=== PATIENT | female | born 2000 | race Caucasian/White ===

== ENCOUNTER 2023-09-13 07:34 | Inpatient (IN) ==
--- NOTE | 2023-09-13 08:25 | History & Physical Report ---
"Date of Service September 13, 2023 Assessment & Plan (1) Encounter for induction of labor: Plan 23 y/o here for induction Epidural when requested AROM when indicated Pitocin augmentation as needed for adequate contraction Monitor tracing, category 1 Admission and Anticipated Discharge Date Admission Date: September 13, 2023 History of Present Illness Primary Care Provider: NO PCP Odilia is a 23 y/o at 39 weeks of gestation THOMAS: 09/19/2023 . Here for Induction had a vincent bulb.Complications with this include LGA (anatomy US EFW>98%). Had covid positive 08/03/23 and Influenza positive (09/06/23). Has been attending OB appointments regularly. Currently taking vitamins and ASA. GBS negative, Rubella Immune, BTG: A+ Contractions: none. Fluid or Blood loss: none Movement: active FHR baseline 130, moderate variability, accelerations present, decelerations absent Lab Results OB Labs: Blood Type A Positive 02/18/23 Antibody Screen NEGATIVE 02/18/23 Hemoglobin 11.3 g/dl (12.0-16.0) L 08/12/23 Hematocrit 34.0 % (37.0-47.0) L 08/12/23 Mean Corpuscular Volume 99.4 fL (80.0-100.0) 08/12/23 Platelet Count 189 K/uL (130-400) 08/12/23 Rubella IgG Antibody Immune (Immune) 02/18/23 Rapid Plasma Reagin Nonreactive (Nonreactive) 02/18/23 Hepatitis B Surface Antigen. NON-REACTIVE (NON-REACTIVE) 02/18/23 Hepatitis C Antibody (EIA) NON-REACTIVE (NON-REACTIVE) 02/18/23 HIV (1&2) Ag and Ab Confirmation NON-REACTIVE (NON-REACTIVE) 02/18/23 Glucose 1 Hour 50 gm Load 94 mg/dl (70-130) 07/04/23 OB Optional Labs: Chlamydia trachomatis RNA Not Detected (NotDetected) 02/18/23 Neisseria gonorrhoeae RNA Not Detected (NotDetected) 02/18/23 Labs Reviewed: cfdna-low risk--mln Allergies Allergy/AdvReac Type Severity Reaction Status Date / Time No Known Allergies Allergy Verified 09/12/23 19:55 Home Medications Medication Instructions Recorded Confirmed Type aspirin 81 mg tablet,delayed 81 mg PO DAILY 04/06/23 09/13/23 History release (Adult Low Dose Aspirin) digital therapeutic,SEKOU device #1 ea 05/05/23 09/12/23 Rx magnesium glycinate 400 mg (4 x 100 mg magnesium) PO 05/05/23 09/13/23 Rx DAILY #30 caps breast pump #1 ea 08/09/23 09/12/23 Rx ferrous sulfate 325 mg (65 mg 325 mg PO DAILY 08/12/23 09/13/23 History iron) tablet pantoprazole 20 mg tablet,delayed 20 mg PO DAILY #30 tabs 08/24/23 09/13/23 Rx release amoxicillin 500 mg capsule 500 mg PO TID 08/31/23 09/13/23 History vits no.124-ferrous fum 1 tab PO DAILY 09/12/23 09/13/23 History 27 mg iron-folic acid 800 mcg tablet ( Vitamin) Patient History Medical History (Updated 09/13/23 @ 08:22 by Indy Mullen MD) COVID-19 affecting in third trimester Kidney stone Varicella vaccination Surgical History (Updated 09/12/23 @ 19:54 by Sheree Lehman RN) [place] teeth removed S/P myringotomy with insertion of tube S/P ear surgery 4-5 surgeries for ear drum perforation History of lithotripsy Family History Grandmother (Maternal) Breast cancer Mother Gestational diabetes Diabetes HELLP syndrome delivery Grandmother (Paternal) Heart disease Grandfather (Maternal) Heart disease Denies family history of Ovarian cancer Colorectal cancer Social History Smoking Status: Never smoker Second Hand Exposure: No; Do You Dip or Chew Tobacco: No; Hx Alcohol Use: No Hx Substance Use: No Preferred Language: Indonesian Communication Ability: Effective Stitch Burnisher Required: No Beliefs That Will Affect Care: None marital status: marital status details: Erick Han (24) [phone] Current Living Situation: Spouse Current Living Situation Comment: lives with spouse, no pets current occupational status: employed 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 Skin: warm, dry, intact Heart: +S1/S2, regular, no m/r/g Lungs: equal air entry bilaterally, no rales/rhonchi/wheezes Abd: +BS, soft, NT/ND, gravid uterus Cervical:1.0|50|-2, uterus mod. anterior Ext: warm, no clubbing/cyanosis or edema Results & Data Vital Signs (Past 12 Hours) Vital Signs Temp Pulse Resp BP 09/13/23 07:52 99 H 135/71 09/13/23 07:46 36.7 C 18 Supervising Physician Co-Signing Physician Notes Resident Physician Supervision Note: I was present with Dr. Royce Mullen during the history and exam. I discussed the case with the resident and agree with the findings and plan as documented in the note. Any exceptions or clarifications are listed here: 23yo @ 39 08/07, IOL for suspected LGA, vincent bulb last night fell out at midnight. SVE 5/80/- 2, FHT Cat 1, irreg ctx. Will start pitocin, ok for epidural when she desires. Documented By: Olivia Mortensen, Resident Activity Tracking Resident Involvement: Resident Care Provided Care Provided: OB Delivery"
[2023-09-13] MEDS ORDERED: OXYTOCIN 30 UNITS/NSS 30 UNITS/500 ML BAG IV PRN (08:39)
[2023-09-13] MEDS ORDERED: LIDOCAINE 1% LOCAL 20 ML VIAL INFIL PRN (08:39)
[2023-09-13 09:07] LABS: Hematocrit (blood only) 35.2 % (37.0-47.0); Hemoglobin 11.5 g/dl (12.0-16.0); Mean Corpuscular Hemoglobin 32.5 pg (25.0-34.0); Mean Corpuscular Hgb Conc 32.7 g/dL (32.0-36.0); Mean Corpuscular Volume 99.4 fL (80.0-100.0); Mean Platelet Volume 10.1 fL (9.4-12.4); Platelet Count 198 K/uL (130-400); RDW Coefficient of Variation 14.2 % (11.5-14.5); RDW Standard Deviation 51.6 fL (36.4-46.3); Red Blood Count 3.54 M/uL (4.20-5.40); White Blood Count 13.54 K/ul (4.8-10.8)
[2023-09-13] MEDS: OXYTOCIN 30 UNITS/NSS 30 UNITS/500 ML BAG IV PRN (09:08)
[2023-09-13] MEDS: LACTATED RINGER'S 1,000 ML IV PRN (09:08)
[2023-09-13] MEDS ORDERED: AMOXICILLIN 500 MG CAP PO SCH (13:00)
[2023-09-13] MEDS: AMOXICILLIN 500 MG CAP PO SCH (14:12)
--- NOTE | 2023-09-13 14:25 | Anesthesiology Consultation ---
Date of Service September 13, 2023 Assessment & Plan Chart Review Chart Review: Patient NOT seen in Pre Admission Testing and Acceptable Risk for Labor Epidural Consults Requested none ASA ASA2 Proposed Anesthesia Anesthesia Type: Labor Epidural Risk / Benefits Reviewed With: PT / POA / Parent / Guardian, Accepts Plan and Informed Consent Obtained History Height/Weight Height: 5 ft 2 in Weight: 85.729 kg Allergies Allergy/AdvReac Type Severity Reaction Status Date / Time No Known Allergies Allergy Verified 09/12/23 19:55 Medications Home Medications Medication Instructions Recorded Confirmed Last Taken aspirin 81 mg tablet,delayed 81 mg PO DAILY 04/06/23 09/13/23 09/11/23 release (Adult Low Dose Aspirin) digital therapeutic,SEKOU device #1 ea 05/05/23 09/12/23 Unknown magnesium glycinate 400 mg (4 x 100 mg magnesium) PO 05/05/23 09/13/23 09/11/23 06:00 DAILY #30 caps breast pump #1 ea 08/09/23 09/12/23 Unknown ferrous sulfate 325 mg (65 mg 325 mg PO DAILY 08/12/23 09/13/23 09/11/23 06:00 iron) tablet pantoprazole 20 mg tablet,delayed 20 mg PO DAILY #30 tabs 08/24/23 09/13/23 09/11/23 06:00 release amoxicillin 500 mg capsule 500 mg PO TID 08/31/23 09/13/23 09/13/23 06:00 vits no.124-ferrous fum 1 tab PO DAILY 09/12/23 09/13/23 09/13/23 06:00 27 mg iron-folic acid 800 mcg tablet ( Vitamin) Active Medications Generic Name Dose Route Start Last Admin Trade Name Freq PRN Reason Stop Dose Admin Amoxicillin 500 mg 09/13/23 14:00 09/13/23 14:12 Amoxicillin 500 Mg Cap PO 09/15/23 13:59 500 mg TID DARLYN Administration Protocol Lactated Ringer's 1,000 mls @ 125 mls/hr 09/13/23 08:39 09/13/23 14:12 Lr IV 09/15/23 08:38 125 mls/hr .Q8H PRN Administration L&D Protocol Protocol Oxytocin 30 units in 500 mls @ 15 mls/hr 09/13/23 08:50 09/13/23 12:45 Pitocin 30 Units/Nss IV 09/15/23 08:49 0.9 units/hr .Q24H PRN 15 mls/hr Labor Induction/Augmentation Titration Protocol 0.9 UNITS/HR NPO Date Last Intake of Fluids: 09/13/23 Time Last Intake of Fluids: 14:00 Date Last Intake of Solids: 09/13/23 Time Last Intake of Solids: 14:00 Past Medical History Medical History COVID-19 affecting in third trimester Kidney stone Varicella vaccination Exercise / Class Metabolic Activity 1 > 8 Run/Swim/Ski/Tennis Past Family History Family History Grandmother (Maternal) Breast cancer Mother Gestational diabetes Diabetes HELLP syndrome delivery Grandmother (Paternal) Heart disease Grandfather (Maternal) Heart disease Denies family history of Ovarian cancer Colorectal cancer Past Surgical History Surgical History [place] teeth removed S/P myringotomy with insertion of tube S/P ear surgery 4-5 surgeries for ear drum perforation History of lithotripsy Past Anesthesia History No Hx of Anesthesia Complications and No Family Hx of Anesthesia Complications History of PONV No Hx of PONV and No Hx of Motion Sickness Social History Smoking Status: Never smoker Do You Dip or Chew Tobacco: No Hx Alcohol Use: No Hx Substance Use: No substance use type: does not use Review of Systems ROS Unobtainable: All systems reviewed & are unremarkable except as noted in HPI & below Physical Exam Vital Signs Last Vital Signs Temp 36.7 C 09/13/23 07:46 Pulse 90 09/13/23 13:44 Resp 18 09/13/23 07:46 BP 124/73 09/13/23 13:44 ENMT Mouth: no TMJ abnormality Thyromental Distance: > or= 3.5 Finger Breadths Mallampati Class: II Neck normal visual inspection and trachea midline; neck extension not limited Respiratory normal respiratory effort Auscultation: lungs clear to auscultation bilaterally Cardiovascular Rate/Rhythm: regular rate and regular rhythm Heart Sounds: no murmur Musculoskeletal Spine: normal cervical ROM Extremities: full ROM of extremities Neurologic moves all extremities Psychiatric Orientation: alert and oriented x 3 Testing Laboratory Results 09/13/23 08:39
[2023-09-13] MEDS ORDERED: LIDOCAINE 2% MPF LOCAL 5 ML VIAL EPI PRN (14:26)
[2023-09-13] MEDS ORDERED: ROPIVACAINE 0.5% PF 5 MG/ML 20 ML VIAL EPI PRN (14:26)
[2023-09-13] MEDS ORDERED: BUPIVACAINE 0.25% PF 30 ML VIAL EPI PRN (14:26)
[2023-09-13] MEDS ORDERED: diphenhydrAMINE 50 MG/ML VIAL IV PRN (14:26)
[2023-09-13] MEDS ORDERED: ePHEDrine sulfate 50 MG/ML AMP IV PRN (14:26)
[2023-09-13] MEDS ORDERED: NALOXONE HCL 1 MG in SODIUM CHLORIDE 0.9% 1,000 ML IV PRN (14:26)
[2023-09-13] MEDS ORDERED: NALOXONE HCL 0.4 MG/1 ML VIAL/CARP IV PRN (14:26)
[2023-09-13] MEDS ORDERED: NALBUPHINE HCL 5 MG in SYRINGE 0 ML IV PRN (14:26)
[2023-09-13] MEDS ORDERED: fentaNYL citrate PF 100 MCG/2 ML VIAL EPI PRN (14:26)
[2023-09-13] MEDS ORDERED: SODIUM CHLORIDE 0.9% PF INJ 10 ML VIAL EPI PRN (14:26)
[2023-09-13] MEDS: LIDOCAINE 2%/EPINEPHRINE 1:200,000 20 ML PF EPI STA (14:38)
[2023-09-13] MEDS: BUPIVACAINE 0.25% PF 30 ML VIAL EPI STA (14:38)
[2023-09-13] MEDS: fentANYL 2 MCG/ML BUPIVacaine 0.125%-NSS 100ML BAG ONE (14:40)
[2023-09-13] MEDS: fentaNYL citrate PF 100 MCG/2 ML VIAL ONE (17:55)
[2023-09-13] MEDS: SODIUM CHLORIDE 0.9% PF INJ 10 ML VIAL ONE (17:56)
[2023-09-13] MEDS: BUPIVACAINE 0.25% PF 30 ML VIAL ONE (17:56)
[2023-09-13] MEDS: SODIUM CHLORIDE 0.9% PF INJ 10 ML VIAL EPI STA (17:56)
[2023-09-13] MEDS: fentaNYL citrate PF 100 MCG/2 ML VIAL EPI STA (17:56)
[2023-09-13] MEDS: LIDOCAINE 2%/EPINEPHRINE 1:200,000 20 ML PF ONE (17:56)
--- NOTE | 2023-09-13 20:09 | Labor Progress Brief Note ---
Date of Service September 13, 2023 Subjective Comfortable with epidural. FHT Cat 1 [place] Q 2 SVE: /-1 IUPC placed. Assessment & Plan Admission and Anticipated Discharge Date Admission Date: September 13, 2023 Results & Data Vital Signs (Past 12 Hours) Vital Signs Temp Pulse Resp BP Pulse Ox O2 Del Method 09/13/23 20:03 69 100 09/13/23 20:01 83 110/71 09/13/23 19:58 81 100 09/13/23 19:53 93 H 99 09/13/23 19:49 81 91 09/13/23 19:48 86 99 09/13/23 19:47 73 99/55 L 09/13/23 19:43 73 100 09/13/23 19:38 97 09/13/23 19:38 73 09/13/23 19:38 75 92 09/13/23 19:33 76 100 09/13/23 19:31 77 103/55 L 09/13/23 19:28 77 100 09/13/23 19:23 74 99 09/13/23 19:18 73 100 09/13/23 19:17 74 105/53 L 09/13/23 19:13 79 100 09/13/23 19:08 82 100 09/13/23 19:03 95 H 100 09/13/23 19:01 36.8 C 82 18 98/57 L 09/13/23 19:00 Room Air 09/13/23 19:00 16 09/13/23 19:00 16 09/13/23 18:58 77 100 09/13/23 18:55 73 93 09/13/23 18:53 80 100 09/13/23 18:48 81 100 09/13/23 18:47 87 100/56 L 09/13/23 18:43 82 94 09/13/23 18:38 85 100 09/13/23 18:35 79 91 09/13/23 18:33 80 100 09/13/23 18:31 71 102/57 L 09/13/23 18:30 20 09/13/23 18:30 20 09/13/23 18:28 74 100 09/13/23 18:23 75 100 09/13/23 18:19 75 93 09/13/23 18:18 97 09/13/23 18:18 73 09/13/23 18:18 69 101/57 L 09/13/23 18:13 73 100 09/13/23 18:08 69 100 09/13/23 18:03 79 100 09/13/23 18:02 70 105/55 L 09/13/23 18:00 20 09/13/23 18:00 20 09/13/23 17:58 73 100 09/13/23 17:53 73 100 09/13/23 17:49 81 88 L 09/13/23 17:48 82 97 09/13/23 17:46 71 121/64 09/13/23 17:43 64 100 09/13/23 17:38 63 100 09/13/23 17:33 65 100 09/13/23 17:32 68 100/67 09/13/23 17:30 18 09/13/23 17:30 18 09/13/23 17:28 66 100 09/13/23 17:23 65 100 09/13/23 17:18 63 100 09/13/23 17:17 64 108/67 09/13/23 17:13 72 100 09/13/23 17:10 71 92 09/13/23 17:08 74 100 09/13/23 17:04 81 93 09/13/23 17:03 91 H 100 09/13/23 17:02 82 104/64 09/13/23 17:00 20 09/13/23 17:00 36.9 C 20 09/13/23 16:58 80 98 09/13/23 16:53 75 98 09/13/23 16:48 75 100 09/13/23 16:46 75 101/56 L 09/13/23 16:43 75 100 09/13/23 16:40 70 92 09/13/23 16:38 77 100 09/13/23 16:33 76 100 09/13/23 16:31 69 99/57 L 09/13/23 16:30 18 09/13/23 16:30 18 09/13/23 16:28 79 100 09/13/23 16:23 71 100 09/13/23 16:19 78 88 L 09/13/23 16:18 77 100 09/13/23 16:17 72 98/51 L 09/13/23 16:13 73 100 09/13/23 16:09 77 92 09/13/23 16:08 75 100 09/13/23 16:03 80 100 09/13/23 16:00 20 09/13/23 16:00 36.4 C L 20 09/13/23 15:58 75 100 09/13/23 15:53 76 100 09/13/23 15:48 69 104/59 L 100 09/13/23 15:43 71 100 09/13/23 15:38 69 100 09/13/23 15:33 75 100 09/13/23 15:31 78 117/70 09/13/23 15:30 18 09/13/23 15:30 18 09/13/23 15:28 69 100 09/13/23 15:25 71 111/58 L 09/13/23 15:23 64 98 09/13/23 15:21 67 112/58 L 09/13/23 15:18 65 98 09/13/23 15:16 65 110/58 L 09/13/23 15:13 67 98 09/13/23 15:11 63 112/61 09/13/23 15:08 69 99 09/13/23 15:06 71 112/60 09/13/23 15:03 65 100 09/13/23 15:00 74 18 117/63 09/13/23 14:58 74 100 09/13/23 14:56 72 119/61 09/13/23 14:53 84 99 09/13/23 14:49 74 109/62 09/13/23 14:48 76 96 09/13/23 14:47 73 108/62 09/13/23 14:45 78 112/64 09/13/23 14:43 78 109/65 98 09/13/23 14:41 78 118/56 L 09/13/23 14:40 20 09/13/23 14:40 20 09/13/23 14:39 73 112/60 09/13/23 14:38 80 100 09/13/23 14:37 93 H 121/75 09/13/23 14:36 20 09/13/23 14:36 20 09/13/23 14:35 78 20 118/75 09/13/23 14:33 80 100 09/13/23 14:31 18 09/13/23 14:31 18 09/13/23 14:28 79 100 09/13/23 14:26 20 09/13/23 14:26 20 09/13/23 14:23 85 111/72 100 09/13/23 13:44 90 124/73 09/13/23 12:49 76 107/64 09/13/23 11:45 96 H 125/74 09/13/23 10:49 73 112/52 L 09/13/23 09:59 76 118/59 L 09/13/23 09:11 81 129/61 Coding Level of Care Code None
[2023-09-13] MEDS: fentANYL 2 MCG/ML BUPIVacaine 0.125%-NSS 100ML BAG EPI PRN (23:32)
--- NOTE | 2023-09-13 23:48 | Labor Progress Brief Note ---
Date of Service September 13, 2023 Subjective Comfortable with epidural. FHT Cat 1 [place] Q 2, unable to achieve consistent adequate [place] units SVE 6/100/-1 Cervix remains essentially unchanged after 5h with pitocin at 20u. Minimal change throughout the past 14h of labor (she arrived with 5cm dilation). Discussed either continuing labor vs proceeding to section for failure to dilate. She and spouse would like to discuss - I answered questions, and then left the room to allow the opportunity to discuss amongst themselves. Assessment & Plan Admission and Anticipated Discharge Date Admission Date: September 13, 2023 Results & Data Vital Signs (Past 12 Hours) Vital Signs Temp Pulse Resp BP Pulse Ox O2 Del Method 09/13/23 23:43 92 H 99 09/13/23 23:40 36.7 C 09/13/23 23:38 78 100 09/13/23 23:33 90 100 09/13/23 23:32 86 118/69 09/13/23 23:28 81 100 09/13/23 23:25 96 H 86 L 09/13/23 23:23 81 100 09/13/23 23:18 86 99 09/13/23 23:16 89 116/69 09/13/23 23:13 83 99 09/13/23 23:08 84 100 09/13/23 23:03 84 98 09/13/23 23:02 90 112/65 09/13/23 23:00 16 09/13/23 23:00 16 09/13/23 22:58 87 100 09/13/23 22:53 89 100 09/13/23 22:48 83 99 09/13/23 22:46 86 115/63 09/13/23 22:43 78 99 09/13/23 22:38 79 100 09/13/23 22:33 77 99 09/13/23 22:31 80 121/65 09/13/23 22:30 18 09/13/23 22:30 18 09/13/23 22:28 73 98 09/13/23 22:23 87 99 09/13/23 22:18 86 99 09/13/23 22:17 81 119/64 09/13/23 22:13 85 97 09/13/23 22:08 70 100 09/13/23 22:03 80 100 09/13/23 22:02 71 122/64 09/13/23 22:00 18 09/13/23 22:00 18 09/13/23 21:58 65 100 09/13/23 21:53 72 100 09/13/23 21:48 69 100 09/13/23 21:46 66 116/58 L 09/13/23 21:43 69 100 09/13/23 21:38 68 99 09/13/23 21:33 69 100 09/13/23 21:31 73 113/60 09/13/23 21:30 18 09/13/23 21:30 18 09/13/23 21:28 74 100 09/13/23 21:23 70 100 09/13/23 21:18 71 99 09/13/23 21:16 77 111/59 L 09/13/23 21:13 76 98 09/13/23 21:08 85 97 09/13/23 21:07 83 92 09/13/23 21:05 18 09/13/23 21:05 37.0 C 18 09/13/23 21:03 79 96 09/13/23 21:01 71 102/53 L 09/13/23 21:00 16 09/13/23 21:00 16 09/13/23 21:00 16 09/13/23 21:00 16 09/13/23 20:58 74 96 09/13/23 20:53 74 96 09/13/23 20:48 73 96 09/13/23 20:47 72 107/59 L 09/13/23 20:43 73 98 09/13/23 20:38 73 97 09/13/23 20:33 71 98 09/13/23 20:31 71 108/60 09/13/23 20:30 18 09/13/23 20:30 18 09/13/23 20:28 74 97 09/13/23 20:23 72 100 09/13/23 20:18 69 100 09/13/23 20:17 70 121/72 09/13/23 20:13 71 100 09/13/23 20:08 67 93 09/13/23 20:03 69 100 09/13/23 20:01 83 110/71 09/13/23 20:00 18 09/13/23 20:00 18 09/13/23 19:58 81 100 09/13/23 19:53 93 H 99 09/13/23 19:50 18 09/13/23 19:50 18 09/13/23 19:49 81 91 09/13/23 19:48 86 99 09/13/23 19:47 73 99/55 L 09/13/23 19:43 73 100 09/13/23 19:38 97 09/13/23 19:38 73 09/13/23 19:38 75 92 09/13/23 19:33 76 100 09/13/23 19:31 77 103/55 L 09/13/23 19:28 77 100 09/13/23 19:23 74 99 09/13/23 19:18 73 100 09/13/23 19:17 74 105/53 L 09/13/23 19:13 79 100 09/13/23 19:08 82 100 09/13/23 19:03 95 H 100 09/13/23 19:01 36.8 C 82 18 98/57 L 09/13/23 19:00 Room Air 09/13/23 19:00 16 09/13/23 19:00 16 09/13/23 18:58 77 100 09/13/23 18:55 73 93 09/13/23 18:53 80 100 09/13/23 18:48 81 100 09/13/23 18:47 87 100/56 L 09/13/23 18:43 82 94 09/13/23 18:38 85 100 09/13/23 18:35 79 91 09/13/23 18:33 80 100 09/13/23 18:31 71 102/57 L 09/13/23 18:30 20 09/13/23 18:30 20 09/13/23 18:28 74 100 09/13/23 18:23 75 100 09/13/23 18:19 75 93 09/13/23 18:18 97 09/13/23 18:18 73 09/13/23 18:18 69 101/57 L 09/13/23 18:13 73 100 09/13/23 18:08 69 100 09/13/23 18:03 79 100 09/13/23 18:02 70 105/55 L 09/13/23 18:00 20 09/13/23 18:00 20 09/13/23 17:58 73 100 09/13/23 17:53 73 100 09/13/23 17:49 81 88 L 09/13/23 17:48 82 97 09/13/23 17:46 71 121/64 09/13/23 17:43 64 100 09/13/23 17:38 63 100 09/13/23 17:33 65 100 09/13/23 17:32 68 100/67 09/13/23 17:30 18 09/13/23 17:30 18 09/13/23 17:28 66 100 09/13/23 17:23 65 100 09/13/23 17:18 63 100 09/13/23 17:17 64 108/67 09/13/23 17:13 72 100 09/13/23 17:10 71 92 09/13/23 17:08 74 100 09/13/23 17:04 81 93 09/13/23 17:03 91 H 100 09/13/23 17:02 82 104/64 09/13/23 17:00 20 09/13/23 17:00 36.9 C 20 09/13/23 16:58 80 98 09/13/23 16:53 75 98 09/13/23 16:48 75 100 09/13/23 16:46 75 101/56 L 09/13/23 16:43 75 100 09/13/23 16:40 70 92 09/13/23 16:38 77 100 09/13/23 16:33 76 100 09/13/23 16:31 69 99/57 L 09/13/23 16:30 18 09/13/23 16:30 18 09/13/23 16:28 79 100 09/13/23 16:23 71 100 09/13/23 16:19 78 88 L 09/13/23 16:18 77 100 09/13/23 16:17 72 98/51 L 09/13/23 16:13 73 100 09/13/23 16:09 77 92 09/13/23 16:08 75 100 09/13/23 16:03 80 100 09/13/23 16:00 20 09/13/23 16:00 36.4 C L 20 09/13/23 15:58 75 100 09/13/23 15:53 76 100 09/13/23 15:48 69 104/59 L 100 09/13/23 15:43 71 100 09/13/23 15:38 69 100 02/13/24 15:33 75 100 09/13/23 15:31 78 117/70 09/13/23 15:30 18 09/13/23 15:30 18 09/13/23 15:28 69 100 09/13/23 15:25 71 111/58 L 09/13/23 15:23 64 98 09/13/23 15:21 67 112/58 L 09/13/23 15:18 65 98 09/13/23 15:16 65 110/58 L 09/13/23 15:13 67 98 09/13/23 15:11 63 112/61 09/13/23 15:08 69 99 09/13/23 15:06 71 112/60 09/13/23 15:03 65 100 09/13/23 15:00 74 18 117/63 09/13/23 14:58 74 100 09/13/23 14:56 72 119/61 09/13/23 14:53 84 99 09/13/23 14:49 74 109/62 09/13/23 14:48 76 96 09/13/23 14:47 73 108/62 09/13/23 14:45 78 112/64 09/13/23 14:43 78 109/65 98 09/13/23 14:41 78 118/56 L 09/13/23 14:40 20 09/13/23 14:40 20 09/13/23 14:39 73 112/60 09/13/23 14:38 80 100 09/13/23 14:37 93 H 121/75 09/13/23 14:36 20 09/13/23 14:36 20 09/13/23 14:35 78 20 118/75 09/13/23 14:33 80 100 09/13/23 14:31 18 09/13/23 14:31 18 09/13/23 14:28 79 100 09/13/23 14:26 20 09/13/23 14:26 20 09/13/23 14:23 85 111/72 100 09/13/23 13:44 90 124/73 09/13/23 12:49 76 107/64 Coding Level of Care Code None
--- NOTE | 2023-09-14 00:26 | History & Physical Bridge Note ---
Date of Service September 14, 2023 History & Physical Bridge Note I have examined the patient, reviewed the History & Physical and in the interval since the performance of the History & Physical I have noted the following changes of clinical significance: no changes noted. Patient had an opportunity to discuss with spouse, she decided to proceed with section. Reviewed consent in detail, discussed risks/benefits/alternatives. Questions answered. Will proceed to OR for primary section for failure to dilate in labor.
--- NOTE | 2023-09-14 00:50 | Communication Note ---
Date of Service: September 14, 2023 C section called for failure to progress. Will proceed with regional anesthetic using patient's epidural. ASA 2E.
[2023-09-14] MEDS: CITRIC ACID/SODIUM CITRATE 15 ML UDC PO STA (00:57)
[2023-09-14] MEDS: ceFAZolin 2000MG 2,000 MG/15 ML SYR IV STA (01:00)
[2023-09-14] MEDS ORDERED: NALOXONE HCL 0.4 MG/1 ML VIAL/CARP IV PRN (01:34)
[2023-09-14] MEDS ORDERED: LACTATED RINGER'S 500 ML IV PRN (01:34)
[2023-09-14] MEDS ORDERED: ePHEDrine sulfate 50 MG/ML AMP IV PRN (01:34)
[2023-09-14] MEDS ORDERED: diphenhydrAMINE 50 MG/ML VIAL IV PRN ×2 (01:34→19:34)
[2023-09-14] MEDS ORDERED: NALOXONE HCL 0.08 MG in SYRINGE 1.8 ML IV PRN (01:34)
[2023-09-14] MEDS ORDERED: NALOXONE HCL 1 MG in SODIUM CHLORIDE 0.9% 1,000 ML IV PRN (01:34)
[2023-09-14] MEDS ORDERED: NALBUPHINE HCL 5 MG in SYRINGE 0 ML IV PRN (01:34)
[2023-09-14] MEDS ORDERED: DC INTRASPINAL MORPHINE SCH (01:45)
[2023-09-14] MEDS ORDERED: NO NARCOTICS OR SEDATIVES SCH (01:45)
--- NOTE | 2023-09-14 02:10 | Operative Report ---
PG Post Operative Report Pre & Post Diagnosis Operation Date: 09/14/23 00:30 Pre-Op Diagnosis: Induction for suspected LGA Failure to Progress Post-Op Diagnosis: Induction for suspected LGA Failure to Progress I identified the patient and participated in the time-out.: Yes Procedure Operation Date: 09/14/23 00:30 Actual Procedures p Primary Low Transverse Section in LD. Live male child @0120 - Olivia Mortensen DO Surgeon Olivia Mortensen DO Medical Laboratory Technician Tammi Jovel RN Estimated Blood Loss 800 Findings Consistent with Post-Op Diagnosis Viable male , Apgars 8/9. Weight 8#4oz. Normal appearing uterus, tubes, ovaries. Specimens placenta, cord blood, cord gas Drains vincnet clear yellow 100ml Anesthesia Type L&D Only Epidural Exists Complications none Disposition Accompanied Patient To Recovery: Yes Disposition: L&D Indications 23yo @ 39 2/, IOL for suspected LGA, arrived to L&D after cervical ripening vincent bulb with cervical dilation 5cm, after pitocin for approx 15h cervical dilation with minimal change 6cm. Discussed failure to dilate with patient, she agreed to proceed for section. Description of Procedure The patient was seen in her labor and delivery room, risks benefits and alternatives to surgery were reviewed. Informed consent obtained. Questions were answered. She was taken to the operating room, epidural anesthesia was redosed. She received 2g Ancef and 500mg Azithromycin preoperatively. She was then prepared and draped in the usual sterile fashion in the supine position with a leftward tilt. Timeout was confirmed. A Pfannenstiel skin incision was made with a scalpel, and carried through to the underlying layer of fascia. Fascia was nicked at midline, and this incision was extended bilaterally. The superior aspect of the fascial incision was grasped with Dane clamps x2, elevated off the underlying rectus abdominis muscles, and dissected sharply and bluntly. In similar fashion, the inferior aspect of the fascial incision was dissected. The rectus abdominis muscles were , and the peritoneum was entered bluntly digitally. This was extended bilaterally. The bladder flap was taken down carefully using Metzenbaum scissors. Using a new scalpel, a low transverse uterine incision was created. Clear amniotic fluid noted. The was delivered from a cephalic presentation. The head delivered, followed by shoulders and body. Spontaneous cry on the field. The cord was doubly clamped and cut, and the was handed off to the waiting computer repair instructor. A segment was retained for cord gases. Cord blood was obtained. The placenta was delivered spontaneously intact. The uterus was exteriorized, and cleared of all clots and debris. The hysterotomy incision was reapproximated using 0 Vicryl in a running locked stitch. A second layer of the same suture was used to imbricate the incision. Posterior uterus was evaluated and normal. The uterus was returned to the abdomen, and gutters were cleared of clots and debris. Excellent hemostasis was observed. The fascial incision was reapproximated using 0 Vicryl in a running stitch. The subcutaneous tissue was irrigated, and reapproximated using 2-0 plain gut in a running stitch. The skin was reapproximated using 4-0 Vicryl in a running subcuticular stitch. Steri-Strips and a bandage were applied. The patient tolerated the procedure well, and will be taken to the recovery area in stable and good condition. Sponge, instrument, needle counts correct at end of case. I attest to the content of the Intraoperative Record and any orders documented therein. Any exceptions are noted below. OB Procedure Charges 77515
--- NOTE | 2023-09-14 02:14 | Anesthesiology Progress Note ---
Date of Service September 14, 2023 Anesthesia Post Procedure Vital Signs Vital Signs: Temp Pulse Resp BP Pulse Ox O2 Del Method 09/14/23 02:09 127 H 113/53 L 09/14/23 02:08 129 H 100 09/14/23 00:58 93 H 99 09/14/23 00:53 100 H 99 09/14/23 00:48 101 H 98 09/14/23 00:46 91 H 127/73 09/14/23 00:43 83 98 09/14/23 00:38 87 99 09/14/23 00:33 91 H 98 09/14/23 00:31 81 122/71 09/14/23 00:28 81 99 09/14/23 00:23 82 99 09/14/23 00:18 97 H 99 09/14/23 00:16 95 H 124/70 09/14/23 00:13 92 H 99 09/14/23 00:08 92 H 99 09/14/23 00:03 100 H 100 09/14/23 00:01 88 117/76 09/14/23 00:00 20 09/14/23 00:00 20 09/13/23 23:58 101 H 97 09/13/23 23:53 87 99 09/13/23 23:48 120 H 99 09/13/23 23:46 83 117/74 09/13/23 23:43 92 H 99 09/13/23 23:40 36.7 C 09/13/23 23:38 78 100 09/13/23 23:33 90 100 09/13/23 23:32 86 118/69 09/13/23 23:30 18 09/13/23 23:30 18 09/13/23 23:28 81 100 09/13/23 23:25 96 H 86 L 09/13/23 23:23 81 100 09/13/23 23:18 86 99 09/13/23 23:16 89 116/69 09/13/23 23:13 83 99 09/13/23 23:08 84 100 09/13/23 23:03 84 98 09/13/23 23:02 90 112/65 09/13/23 23:00 16 09/13/23 23:00 16 09/13/23 22:58 87 100 09/13/23 22:53 89 100 09/13/23 22:48 83 99 09/13/23 22:46 86 115/63 09/13/23 22:43 78 99 09/13/23 22:38 79 100 09/13/23 22:33 77 99 09/13/23 22:31 80 121/65 09/13/23 22:30 18 09/13/23 22:30 18 09/13/23 22:28 73 98 09/13/23 22:23 87 99 09/13/23 22:18 86 99 09/13/23 22:17 81 119/64 09/13/23 22:13 85 97 09/13/23 22:08 70 100 09/13/23 22:03 80 100 09/13/23 22:02 71 122/64 09/13/23 22:00 18 09/13/23 22:00 18 09/13/23 21:58 65 100 09/13/23 21:53 72 100 09/13/23 21:48 69 100 09/13/23 21:46 66 116/58 L 09/13/23 21:43 69 100 09/13/23 21:38 68 99 09/13/23 21:33 69 100 09/13/23 21:31 73 113/60 09/13/23 21:30 18 09/13/23 21:30 18 09/13/23 21:28 74 100 09/13/23 21:23 70 100 09/13/23 21:18 71 99 09/13/23 21:16 77 111/59 L 09/13/23 21:13 76 98 09/13/23 21:08 85 97 09/13/23 21:07 83 92 09/13/23 21:05 18 09/13/23 21:05 37.0 C 18 09/13/23 21:03 79 96 09/13/23 21:01 71 102/53 L 09/13/23 21:00 16 09/13/23 21:00 16 09/13/23 21:00 16 09/13/23 21:00 16 09/13/23 20:58 74 96 09/13/23 20:53 74 96 09/13/23 20:48 73 96 09/13/23 20:47 72 107/59 L 09/13/23 20:43 73 98 09/13/23 20:38 73 97 09/13/23 20:33 71 98 09/13/23 20:31 71 108/60 09/13/23 20:30 18 09/13/23 20:30 18 09/13/23 20:28 74 97 09/13/23 20:23 72 100 09/13/23 20:18 69 100 09/13/23 20:17 70 121/72 09/13/23 20:13 71 100 09/13/23 20:08 67 93 09/13/23 20:03 69 100 09/13/23 20:01 83 110/71 09/13/23 20:00 18 09/13/23 20:00 18 09/13/23 19:58 81 100 09/13/23 19:53 93 H 99 09/13/23 19:50 18 09/13/23 19:50 18 09/13/23 19:49 81 91 09/13/23 19:48 86 99 09/13/23 19:47 73 99/55 L 09/13/23 19:43 73 100 09/13/23 19:38 97 09/13/23 19:38 73 09/13/23 19:38 75 92 09/13/23 19:33 76 100 09/13/23 19:31 77 103/55 L 09/13/23 19:28 77 100 09/13/23 19:23 74 99 09/13/23 19:18 73 100 09/13/23 19:17 74 105/53 L 09/13/23 19:13 79 100 09/13/23 19:08 82 100 09/13/23 19:03 95 H 100 09/13/23 19:01 36.8 C 82 18 98/57 L 09/13/23 19:00 Room Air 09/13/23 19:00 16 09/13/23 19:00 16 09/13/23 18:58 77 100 09/13/23 18:55 73 93 09/13/23 18:53 80 100 09/13/23 18:48 81 100 09/13/23 18:47 87 100/56 L 09/13/23 18:43 82 94 09/13/23 18:38 85 100 09/13/23 18:35 79 91 09/13/23 18:33 80 100 09/13/23 18:31 71 102/57 L 09/13/23 18:30 20 09/13/23 18:30 20 09/13/23 18:28 74 100 09/13/23 18:23 75 100 09/13/23 18:19 75 93 09/13/23 18:18 97 09/13/23 18:18 73 09/13/23 18:18 69 101/57 L 09/13/23 18:13 73 100 09/13/23 18:08 69 100 09/13/23 18:03 79 100 09/13/23 18:02 70 105/55 L 09/13/23 18:00 20 09/13/23 18:00 20 09/13/23 17:58 73 100 09/13/23 17:53 73 100 09/13/23 17:49 81 88 L 09/13/23 17:48 82 97 09/13/23 17:46 71 121/64 09/13/23 17:43 64 100 09/13/23 17:38 63 100 09/13/23 17:33 65 100 09/13/23 17:32 68 100/67 09/13/23 17:30 18 09/13/23 17:30 18 09/13/23 17:28 66 100 09/13/23 17:23 65 100 09/13/23 17:18 63 100 09/13/23 17:17 64 108/67 09/13/23 17:13 72 100 09/13/23 17:10 71 92 09/13/23 17:08 74 100 09/13/23 17:04 81 93 09/13/23 17:03 91 H 100 09/13/23 17:02 82 104/64 09/13/23 17:00 20 09/13/23 17:00 36.9 C 20 09/13/23 16:58 80 98 09/13/23 16:53 75 98 09/13/23 16:48 75 100 09/13/23 16:46 75 101/56 L 09/13/23 16:43 75 100 09/13/23 16:40 70 92 09/13/23 16:38 77 100 09/13/23 16:33 76 100 09/13/23 16:31 69 99/57 L 09/13/23 16:30 18 09/13/23 16:30 18 09/13/23 16:28 79 100 09/13/23 16:23 71 100 09/13/23 16:19 78 88 L 09/13/23 16:18 77 100 09/13/23 16:17 72 98/51 L 09/13/23 16:13 73 100 09/13/23 16:09 77 92 09/13/23 16:08 75 100 09/13/23 16:03 80 100 09/13/23 16:00 20 09/13/23 16:00 36.4 C L 20 09/13/23 15:58 75 100 09/13/23 15:53 76 100 09/13/23 15:48 69 104/59 L 100 09/13/23 15:43 71 100 09/13/23 15:38 69 100 09/13/23 15:33 75 100 09/13/23 15:31 78 117/70 09/13/23 15:30 18 09/13/23 15:30 18 09/13/23 15:28 69 100 09/13/23 15:25 71 111/58 L 09/13/23 15:23 64 98 09/13/23 15:21 67 112/58 L 09/13/23 15:18 65 98 09/13/23 15:16 65 110/58 L 09/13/23 15:13 67 98 09/13/23 15:11 63 112/61 09/13/23 15:08 69 99 09/13/23 15:06 71 112/60 09/13/23 15:03 65 100 09/13/23 15:00 74 18 117/63 09/13/23 14:58 74 100 09/13/23 14:56 72 119/61 09/13/23 14:53 84 99 09/13/23 14:49 74 109/62 09/13/23 14:48 76 96 09/13/23 14:47 73 108/62 09/13/23 14:45 78 112/64 09/13/23 14:43 78 109/65 98 09/13/23 14:41 78 118/56 L 09/13/23 14:40 20 09/13/23 14:40 20 09/13/23 14:39 73 112/60 09/13/23 14:38 80 100 09/13/23 14:37 93 H 121/75 09/13/23 14:36 20 09/13/23 14:36 20 09/13/23 14:35 78 20 118/75 09/13/23 14:33 80 100 09/13/23 14:31 18 09/13/23 14:31 18 09/13/23 14:28 79 100 09/13/23 14:26 20 09/13/23 14:26 20 09/13/23 14:23 85 111/72 100 09/13/23 13:44 90 124/73 09/13/23 12:49 76 107/64 09/13/23 11:45 96 H 125/74 09/13/23 10:49 73 112/52 L 09/13/23 09:59 76 118/59 L 09/13/23 09:11 81 129/61 09/13/23 07:52 99 H 135/71 09/13/23 07:46 36.7 C 18 Transfer of Care Handoff Completed per policy Notes Mental Status: alert / awake / arousable Patient Amnestic to Procedure: Yes Nausea / Vomiting: adequately controlled Pain: adequately controlled Airway Patency, RR, SpO2: stable & adequate BP & HR: stable & adequate Hydration State: stable & adequate Neuraxial Anesthesia: was administered and sensory block is resolving Anesthetic Complications: no major complications apparent and Pt Satisfied with anesthetic care
--- NOTE | 2023-09-14 02:14 | Anesthesia Procedure Note ---
Date of Service September 14, 2023 Anesthesia Post Epidural Note Vital Signs Vital Signs: Temp Pulse Resp BP Pulse Ox O2 Del Method 36.7 C 127 H 20 113/53 L 100 Room Air 09/13/23 23:40 09/14/23 02:09 09/14/23 00:00 09/14/23 02:09 09/14/23 02:08 09/13/23 19:00 Notes Mental Status: alert / awake / arousable and participated in evaluation Nausea / Vomiting: adequately controlled Pain: adequately controlled Airway Patency, RR, SpO2: stable & adequate BP & HR: stable & adequate Hydration State: stable & adequate Neuraxial Anesthesia: was administered and sensory block is resolving Anesthetic Complications: no major complications apparent Epidural: Removed without complications and With tip intact
[2023-09-14 02:28] LABS: Base Excess Cord Venous Blood -1.1 mEq/L (-7.7-1.9); Cord Venous Blood HCO3 24 mmol/L (18.4-26.8); Cord Venous Blood PCO2 42 mmHg (30.4-57.2); Cord Venous Blood PO2 40 mmHg (14.1-43.3); Cord Venous Blood pH 7.37 (7.20-7.44); O2 Saturation Cord Venous Bld 73.4 % (<68)
[2023-09-14 02:31] LABS: Base Excess Cord Arterial Bld -1.4 mEq/L (-9-1.8); CO2 Cord Arterial Blood 54 mmHg (39.1-73.5); HCO3 Cord Arterial Blood 26 mmol/L (19.7-28.5); Oxygen Sat Cord Arterial Blood < 60.0 % (<60); PO2 Cord Arterial Blood 28 mmHg (4.1-31.7); pH Cord Arterial Blood 7.29 (7.1-7.38)
[2023-09-14] MEDS ORDERED: MAGNESIUM HYDROXIDE SUSP 30 ML UDC PO PRN (02:56)
[2023-09-14] MEDS ORDERED: BENZOCAINE 20% SPRY 85 APPLN/85 GM CAN EXT PRN (02:56)
[2023-09-14] MEDS ORDERED: HYDROCORTISONE ACETATE 25 MG SUPP PR PRN (02:56)
[2023-09-14] MEDS ORDERED: SENNA 8.6 MG TAB PO PRN (02:56)
[2023-09-14] MEDS: ePHEDrine sulfate 50 MG/ML AMP ONE (03:36)
[2023-09-14] MEDS: OXYTOCIN 30 UNITS/LR 1,003 ML IV SCH (04:23)
[2023-09-14] MEDS: KETOROLAC 30 MG/ML VIAL IV PRN (04:37)
--- NOTE | 2023-09-14 06:13 | Obstetrical Progress Note ---
Date of Service September 14, 2023 Assessment & Plan Plan 23 y/o female post day 1 Rubella immune Hgb reviewed Pain control with Motrin ambulation Encourage breast feeding Admission and Anticipated Discharge Date Admission Date: September 13, 2023 Subjective 23 yo post- day 1 s/p Ambulation: ambulating normally Voiding: no voiding problems Passing Gas:: Yes Diet Tolerance:: regular diet Lochia:: Small Feeding Type:: bottle feeding Current Pain Level: Resting comfortably this AM in NAD. Denies NICKERSON, CP, SOB, N/V/D, LE pain/swelling. Review of Systems Review of Systems: All systems reviewed & are unremarkable except as noted in HPI & below Physical Exam Physical Exam: General: patient resting comfortably, NAD, non-toxic in appearance, AA&O x 4, answers questions appropriately. Skin: warm, dry, intact HEENT: NC/AT, anicteric sclera, conjunctiva without injection, moist mucus membranes. Heart: +S1/S2, regular, no m/r/g Lungs: equal air entry bilaterally, no rales/rhonchi/wheezes Abd: +BS, soft, NT/ND, uterine fundus firm at umbilicus Ext: warm, no clubbing/cyanosis or edema, Jazmine's neg. Neuro: nonfocal, patient AA&O x 4, speech intact, no facial droop, moving all extremities on command. Results & Data Vital Signs (Past 12 Hours) Vital Signs Temp Pulse Pulse Resp BP BP Pulse Ox 09/14/23 04:45 18 97 09/14/23 04:45 09/14/23 04:10 37.0 C 81 18 112/59 L 97 09/14/23 04:10 37.0 C 18 09/14/23 04:09 81 112/59 L 09/14/23 04:08 73 98 09/14/23 04:03 79 97 09/14/23 04:01 73 110/59 L 09/14/23 03:58 76 97 09/14/23 03:53 85 98 09/14/23 03:51 79 109/57 L 09/14/23 03:48 79 97 09/14/23 03:43 80 98 09/14/23 03:41 82 108/55 L 09/14/23 03:40 16 09/14/23 03:38 90 99 09/14/23 03:33 75 97 09/14/23 03:31 80 107/57 L 09/14/23 03:28 80 97 09/14/23 03:23 78 97 09/14/23 03:21 82 109/59 L 09/14/23 03:18 78 98 09/14/23 03:13 77 97 09/14/23 03:12 77 106/56 L 09/14/23 03:10 16 09/14/23 03:10 16 09/14/23 03:08 86 97 09/14/23 03:03 81 98 09/14/23 03:00 16 09/14/23 03:00 120 H 109/54 L 09/14/23 02:58 112 H 99 09/14/23 02:53 118 H 99 09/14/23 02:50 16 09/14/23 02:48 114 H 99 09/14/23 02:44 118 H 100/49 L 09/14/23 02:43 118 H 99 09/14/23 02:40 16 09/14/23 02:38 132 H 100 09/14/23 02:33 133 H 96 09/14/23 02:32 73 159/61 H 09/14/23 02:30 18 09/14/23 02:28 132 H 100 09/14/23 02:23 126 H 100 09/14/23 02:21 125 H 98/52 L 09/14/23 02:20 16 09/14/23 02:18 125 H 100 09/14/23 02:13 107 H 100 09/14/23 02:10 36.8 C 16 09/14/23 02:09 127 H 113/53 L 09/14/23 02:08 129 H 100 09/14/23 00:58 93 H 99 09/14/23 00:53 100 H 99 09/14/23 00:48 101 H 98 09/14/23 00:46 91 H 127/73 09/14/23 00:43 83 98 09/14/23 00:38 87 99 09/14/23 00:33 91 H 98 09/14/23 00:31 81 122/71 09/14/23 00:28 81 99 09/14/23 00:23 82 99 09/14/23 00:18 97 H 99 09/14/23 00:16 95 H 124/70 09/14/23 00:13 92 H 99 09/14/23 00:08 92 H 99 09/14/23 00:03 100 H 100 09/14/23 00:01 88 117/76 09/14/23 00:00 20 09/14/23 00:00 20 09/13/23 23:58 101 H 97 09/13/23 23:53 87 99 09/13/23 23:48 120 H 99 09/13/23 23:46 83 117/74 09/13/23 23:43 92 H 99 09/13/23 23:40 36.7 C 09/13/23 23:38 78 100 09/13/23 23:33 90 100 09/13/23 23:32 86 118/69 09/13/23 23:30 18 09/13/23 23:30 18 09/13/23 23:28 81 100 09/13/23 23:25 96 H 86 L 09/13/23 23:23 81 100 09/13/23 23:18 86 99 09/13/23 23:16 89 116/69 09/13/23 23:13 83 99 09/13/23 23:08 84 100 09/13/23 23:03 84 98 09/13/23 23:02 90 112/65 09/13/23 23:00 16 09/13/23 23:00 16 09/13/23 22:58 87 100 09/13/23 22:53 89 100 09/13/23 22:48 83 99 09/13/23 22:46 86 115/63 09/13/23 22:43 78 99 09/13/23 22:38 79 100 09/13/23 22:33 77 99 09/13/23 22:31 80 121/65 09/13/23 22:30 18 09/13/23 22:30 18 09/13/23 22:28 73 98 09/13/23 22:23 87 99 09/13/23 22:18 86 99 09/13/23 22:17 81 119/64 09/13/23 22:13 85 97 09/13/23 22:08 70 100 09/13/23 22:03 80 100 09/13/23 22:02 71 122/64 09/13/23 22:00 18 09/13/23 22:00 18 09/13/23 21:58 65 100 09/13/23 21:53 72 100 09/13/23 21:48 69 100 09/13/23 21:46 66 116/58 L 09/13/23 21:43 69 100 09/13/23 21:38 68 99 09/13/23 21:33 69 100 09/13/23 21:31 73 113/60 09/13/23 21:30 18 09/13/23 21:30 18 09/13/23 21:28 74 100 09/13/23 21:23 70 100 09/13/23 21:18 71 99 09/13/23 21:16 77 111/59 L 09/13/23 21:13 76 98 09/13/23 21:08 85 97 09/13/23 21:07 83 92 09/13/23 21:05 18 09/13/23 21:05 37.0 C 18 09/13/23 21:03 79 96 09/13/23 21:01 71 102/53 L 09/13/23 21:00 16 09/13/23 21:00 16 09/13/23 21:00 16 09/13/23 21:00 16 09/13/23 20:58 74 96 09/13/23 20:53 74 96 09/13/23 20:48 73 96 09/13/23 20:47 72 107/59 L 09/13/23 20:43 73 98 09/13/23 20:38 73 97 09/13/23 20:33 71 98 09/13/23 20:31 71 108/60 09/13/23 20:30 18 09/13/23 20:30 18 09/13/23 20:28 74 97 09/13/23 20:23 72 100 09/13/23 20:18 69 100 09/13/23 20:17 70 121/72 09/13/23 20:13 71 100 09/13/23 20:08 67 93 09/13/23 20:03 69 100 09/13/23 20:01 83 110/71 09/13/23 20:00 18 09/13/23 20:00 18 09/13/23 19:58 81 100 09/13/23 19:53 93 H 99 09/13/23 19:50 18 02/13/24 19:50 18 09/13/23 19:49 81 91 09/13/23 19:48 86 99 09/13/23 19:47 73 99/55 L 09/13/23 19:43 73 100 09/13/23 19:38 97 09/13/23 19:38 73 09/13/23 19:38 75 92 09/13/23 19:33 76 100 09/13/23 19:31 77 103/55 L 09/13/23 19:28 77 100 09/13/23 19:23 74 99 09/13/23 19:18 73 100 09/13/23 19:17 74 105/53 L 09/13/23 19:13 79 100 09/13/23 19:08 82 100 09/13/23 19:03 95 H 100 09/13/23 19:01 36.8 C 82 18 98/57 L 09/13/23 19:00 09/13/23 19:00 16 09/13/23 19:00 16 09/13/23 18:58 77 100 09/13/23 18:55 73 93 09/13/23 18:53 80 100 09/13/23 18:48 81 100 09/13/23 18:47 87 100/56 L 09/13/23 18:43 82 94 09/13/23 18:38 85 100 09/13/23 18:35 79 91 09/13/23 18:33 80 100 09/13/23 18:31 71 102/57 L 09/13/23 18:30 20 09/13/23 18:30 20 09/13/23 18:28 74 100 09/13/23 18:23 75 100 09/13/23 18:19 75 93 09/13/23 18:18 97 09/13/23 18:18 73 09/13/23 18:18 69 101/57 L 09/13/23 18:13 73 100 O2 Del Method 09/14/23 04:45 09/14/23 04:45 Room Air 09/14/23 04:10 Room Air 09/14/23 04:10 09/14/23 04:09 09/14/23 04:08 09/14/23 04:03 09/14/23 04:01 09/14/23 03:58 09/14/23 03:53 09/14/23 03:51 09/14/23 03:48 09/14/23 03:43 09/14/23 03:41 09/14/23 03:40 09/14/23 03:38 09/14/23 03:33 09/14/23 03:31 09/14/23 03:28 09/14/23 03:23 09/14/23 03:21 09/14/23 03:18 09/14/23 03:13 09/14/23 03:12 09/14/23 03:10 09/14/23 03:10 09/14/23 03:08 09/14/23 03:03 09/14/23 03:00 09/14/23 03:00 09/14/23 02:58 09/14/23 02:53 09/14/23 02:50 09/14/23 02:48 09/14/23 02:44 09/14/23 02:43 09/14/23 02:40 09/14/23 02:38 09/14/23 02:33 09/14/23 02:32 09/14/23 02:30 09/14/23 02:28 09/14/23 02:23 09/14/23 02:21 09/14/23 02:20 09/14/23 02:18 09/14/23 02:13 09/14/23 02:10 Room Air 09/14/23 02:09 09/14/23 02:08 09/14/23 00:58 09/14/23 00:53 09/14/23 00:48 09/14/23 00:46 09/14/23 00:43 09/14/23 00:38 09/14/23 00:33 09/14/23 00:31 09/14/23 00:28 09/14/23 00:23 09/14/23 00:18 09/14/23 00:16 09/14/23 00:13 09/14/23 00:08 09/14/23 00:03 09/14/23 00:01 09/14/23 00:00 09/14/23 00:00 09/13/23 23:58 09/13/23 23:53 09/13/23 23:48 09/13/23 23:46 09/13/23 23:43 09/13/23 23:40 09/13/23 23:38 09/13/23 23:33 09/13/23 23:32 09/13/23 23:30 09/13/23 23:30 09/13/23 23:28 09/13/23 23:25 09/13/23 23:23 09/13/23 23:18 09/13/23 23:16 09/13/23 23:13 09/13/23 23:08 09/13/23 23:03 09/13/23 23:02 09/13/23 23:00 09/13/23 23:00 09/13/23 22:58 09/13/23 22:53 09/13/23 22:48 09/13/23 22:46 09/13/23 22:43 09/13/23 22:38 09/13/23 22:33 09/13/23 22:31 09/13/23 22:30 09/13/23 22:30 09/13/23 22:28 09/13/23 22:23 09/13/23 22:18 09/13/23 22:17 09/13/23 22:13 09/13/23 22:08 09/13/23 22:03 09/13/23 22:02 09/13/23 22:00 09/13/23 22:00 09/13/23 21:58 09/13/23 21:53 09/13/23 21:48 09/13/23 21:46 09/13/23 21:43 09/13/23 21:38 09/13/23 21:33 09/13/23 21:31 09/13/23 21:30 09/13/23 21:30 09/13/23 21:28 09/13/23 21:23 09/13/23 21:18 09/13/23 21:16 09/13/23 21:13 09/13/23 21:08 09/13/23 21:07 09/13/23 21:05 09/13/23 21:05 09/13/23 21:03 09/13/23 21:01 09/13/23 21:00 09/13/23 21:00 09/13/23 21:00 09/13/23 21:00 09/13/23 20:58 09/13/23 20:53 09/13/23 20:48 09/13/23 20:47 09/13/23 20:43 09/13/23 20:38 09/13/23 20:33 09/13/23 20:31 09/13/23 20:30 09/13/23 20:30 09/13/23 20:28 09/13/23 20:23 09/13/23 20:18 09/13/23 20:17 09/13/23 20:13 09/13/23 20:08 09/13/23 20:03 09/13/23 20:01 09/13/23 20:00 09/13/23 20:00 09/13/23 19:58 09/13/23 19:53 09/13/23 19:50 09/13/23 19:50 09/13/23 19:49 09/13/23 19:48 09/13/23 19:47 09/13/23 19:43 09/13/23 19:38 09/13/23 19:38 09/13/23 19:38 09/13/23 19:33 09/13/23 19:31 09/13/23 19:28 09/13/23 19:23 09/13/23 19:18 09/13/23 19:17 09/13/23 19:13 09/13/23 19:08 09/13/23 19:03 09/13/23 19:01 09/13/23 19:00 Room Air 09/13/23 19:00 09/13/23 19:00 09/13/23 18:58 09/13/23 18:55 09/13/23 18:53 09/13/23 18:48 09/13/23 18:47 09/13/23 18:43 09/13/23 18:38 09/13/23 18:35 09/13/23 18:33 09/13/23 18:31 09/13/23 18:30 09/13/23 18:30 09/13/23 18:28 09/13/23 18:23 09/13/23 18:19 09/13/23 18:18 09/13/23 18:18 09/13/23 18:18 09/13/23 18:13
[2023-09-14 06:42] LABS: Hematocrit (blood only) 29.8 % (37.0-47.0); Hemoglobin 9.6 g/dl (12.0-16.0); Mean Corpuscular Hemoglobin 32.8 pg (25.0-34.0); Mean Corpuscular Hgb Conc 32.2 g/dL (32.0-36.0); Mean Corpuscular Volume 101.7 fL (80.0-100.0); Mean Platelet Volume 10.6 fL (9.4-12.4); Platelet Count 209 K/uL (130-400); RDW Coefficient of Variation 14.1 % (11.5-14.5); RDW Standard Deviation 52.9 fL (36.4-46.3); Red Blood Count 2.93 M/uL (4.20-5.40); White Blood Count 21.81 K/ul (4.8-10.8)
[2023-09-14] MEDS: ONDANSETRON INJ 2 MG/ML 2 ML VIAL IV PRN (07:41)
[2023-09-14 07:52] LABS: Basophils # (auto) 0.08 K/uL (0.00-0.20); Basophils % (auto) 0.4 %; Immature Granulocytes # (auto) 0.31 K/uL (0.01-0.20); Immature Granulocytes % (auto) 1.4 %; Lymphocytes # (auto) 0.65 K/uL (1.20-3.40); Monocytes # (auto) 1.01 K/uL (0.11-0.59); Monocytes % (auto) 4.6 %; Neutrophils # (auto) 19.76 K/uL (1.40-6.50); Neutrophils % (auto) 90.6 %
[2023-09-14] MEDS ORDERED: MoRPHine SULFATE 2 MG/ML CARP IV PRN (09:16)
[2023-09-14] MEDS ORDERED: HYDROmorphone INJ 0.5 MG/0.5 ML SYR IV PRN (09:16)
[2023-09-14] MEDS ORDERED: MEPERIDINE HCL 25 MG/ML CARP/VIAL IV PRN (09:16)
[2023-09-14] MEDS: PROMETHAZINE HCL 25 MG in SODIUM CHLORIDE 0.9% 50 ML IV PRN (09:25)
[2023-09-14] MEDS: DOCUSATE SODIUM 100 MG CAP PO SCH (10:10)
[2023-09-14] MEDS: SIMETHICONE 80 MG CHEW PO SCH (10:11)
[2023-09-14] MEDS: FERROUS SULFATE 325 MG TAB PO SCH (12:33)
[2023-09-14] MEDS: PRENATAL VITAMIN 1 TAB PO SCH (12:33)
[2023-09-14] MEDS: PANTOprazole 40 MG TAB PO SCH (13:38)
[2023-09-14] MEDS ORDERED: diphenhydrAMINE Capsule 25 MG CAP PO PRN (19:34)
[2023-09-14] MEDS ORDERED: ONDANSETRON INJ 2 MG/ML 2 ML VIAL IV PRN (19:34)
[2023-09-14] MEDS ORDERED: KETOROLAC 30 MG/ML VIAL IV PRN (19:34)
[2023-09-14] MEDS: IBUPROFEN 600 MG TAB PO PRN (21:37)
[2023-09-14] MEDS: oxyCODONE/ACETAMINOPHEN 5mg/325mg TAB PO PRN (21:39)
--- NOTE | 2023-09-15 06:41 | Obstetrical Progress Note ---
Date of Service September 15, 2023 Assessment & Plan (1) Encounter for care after hospital delivery: Plan 23 yo s/p C section day 1 continue encouraging ambulation continue pain management as needed Hgb reviewed V/S reviewed Encourage breast feeding Admission and Anticipated Discharge Date Admission Date: September 13, 2023 Supervising Physician Co-Signing Physician Notes Patient seen with resident and agree with the above findings and plan. Day 1 status post primary . Doing well we will continue with routine care Subjective 23 yo post- day 1 s/p c/ section day 1 Ambulation: ambulating normally Voiding: no voiding problems Passing Gas:: Yes Diet Tolerance:: regular diet Lochia:: Small Feeding Type:: bottle feeding Current Pain Level: Minimal, controlled with med pains Resting comfortably this AM in NAD. Denies NICKERSON, CP, SOB, N/V/D, LE pain/swelling. Review of Systems Review of Systems: All systems reviewed & are unremarkable except as noted in HPI & below Physical Exam Physical Exam: General: patient resting comfortably, NAD, non-toxic in appearance, AA&O x 4, answers questions appropriately. Skin: warm, dry, intact Heart: +S1/S2, regular, no m/r/g Lungs: equal air entry bilaterally, no rales/rhonchi/wheezes Abd: +BS, soft, NT/ND, uterine fundus firm at umbilicus, incission clean, no erythema, no bleeding, no sign of infections Ext: warm, no clubbing/cyanosis or edema, Jazmine's neg. Results & Data Vital Signs (Past 12 Hours) Vital Signs Temp Pulse Resp BP Pulse Ox O2 Del Method 09/15/23 00:50 36.9 C 99 H 18 105/67 Room Air 09/14/23 20:30 16 99 09/14/23 19:56 18 98 09/14/23 19:20 36.7 C 85 18 110/73 98 Room Air 09/14/23 19:00 16 98 Resident Activity Tracking Resident Involvement: Resident Care Provided Care Provided: OB Delivery
[2023-09-15 06:48] LABS: Hematocrit (blood only) 24.7 % (37.0-47.0); Hemoglobin 7.9 g/dl (12.0-16.0)
[2023-09-15] MEDS: LACTATED RINGER'S 1,000 ML IV SCH (19:52)
[2023-09-15] MEDS: MoRPHine SULFATE PF 1 MG/ML 10 ML AMP/VIAL EPI ONE (19:52)
[2023-09-15] MEDS: SODIUM CHLORIDE 0.9% 1,000 ML IV SCH (19:52)
[2023-09-15] MEDS: bisacodyL 5 MG TABEC PO SCH (21:01)
[2023-09-16] MEDS ORDERED: bisacodyL 10 MG SUPP PR PRN (02:12)
[2023-09-16] MEDS: DIPHTHER/TETAN/PERTUS Vaccine (Tdap, Adol/Adult) 0.5mL IM ONE ×2 (02:28→16:48)
[2023-09-16] MEDS: LACTATED RINGER'S 1,000 ML IV SCH ×2 (02:33→16:48)
[2023-09-16] MEDS: AZITHROMYCIN 500 MG in DEXTROSE 5% 250 ML IV STA (02:37)
--- NOTE | 2023-09-16 05:45 | Obstetrical Progress Note ---
Date of Service September 16, 2023 Assessment & Plan (1) Encounter for care after hospital delivery: Plan 23 yo s/p C section day 1 continue encouraging ambulation continue pain management as needed Hgb reviewed V/S reviewed Encourage breast feeding Admission and Anticipated Discharge Date Admission Date: September 13, 2023 Supervising Physician Co-Signing Physician Notes Resident Physician Supervision Note: I interviewed and examined the patient. Discussed with Dr. Jennings and agree with findings and plan as documented in the note. Any exceptions or clarifications are listed here: [ ] Documented By: Re López MD, FACOG Subjective 23 yo post- day 2 s/p c/ section Ambulation: ambulating normally Voiding: no voiding problems Passing Gas:: Yes Diet Tolerance:: regular diet Lochia:: Small Feeding Type:: bottle feeding Current Pain Level: Minimal, controlled with med pains Resting comfortably this AM in NAD. Denies NICKERSON, CP, SOB, N/V/D, LE pain/swelling. Review of Systems Review of Systems: as per HPI Physical Exam Physical Exam: General: patient resting comfortably, NAD, non-toxic in appearance, AA&O x 4, answers questions appropriately. Skin: warm, dry, intact Heart: +S1/S2, regular, no m/r/g Lungs: equal air entry bilaterally, no rales/rhonchi/wheezes Abd: +BS, soft, NT/ND, uterine fundus firm at umbilicus, incission clean, no erythema, no bleeding, no sign of infections Ext: warm, no clubbing/cyanosis or edema, Jazmine's neg. Results & Data Vital Signs (Past 12 Hours) Vital Signs Temp Pulse Resp BP Pulse Ox O2 Del Method 09/15/23 22:56 37.3 C 96 H 18 119/78 100 Room Air 09/15/23 20:50 36.8 C 100 H 18 121/80 100 Room Air Resident Activity Tracking Resident Involvement: Resident Care Provided Care Provided: OB Delivery
[2023-09-16] MEDS ORDERED: PROMETHAZINE HCL 25 MG in SODIUM CHLORIDE 0.9% 50 ML IV PRN (13:01)
[2023-09-16] MEDS ORDERED: BENZOCAINE 20% SPRY 85 APPLN/85 GM CAN EXT PRN (13:01)
[2023-09-16] MEDS ORDERED: diphenhydrAMINE Capsule 25 MG CAP PO PRN (13:01)
[2023-09-16] MEDS ORDERED: diphenhydrAMINE 50 MG/ML VIAL IV PRN (13:01)
[2023-09-16] MEDS ORDERED: MAGNESIUM HYDROXIDE SUSP 30 ML UDC PO PRN (13:01)
[2023-09-16] MEDS ORDERED: ONDANSETRON INJ 2 MG/ML 2 ML VIAL IV PRN (13:01)
[2023-09-16] MEDS ORDERED: HYDROCORTISONE ACETATE 25 MG SUPP PR PRN (13:01)
[2023-09-16] MEDS ORDERED: SENNA 8.6 MG TAB PO PRN (13:01)
[2023-09-16] MEDS ORDERED: ONDANSETRON ORAL SOLN 0.8 MG/1 ML PO PRN (13:01)
[2023-09-16] MEDS ORDERED: ONDANSETRON 4 MG OD TAB PO PRN (13:06)
[2023-09-16] MEDS: ONDANSETRON 4 MG OD TAB ONE (13:36)
[2023-09-16] MEDS: AMOXICILLIN/CLAVULANATE 875 MG TAB PO SCH (16:47)
[2023-09-16] MEDS ORDERED: SIMETHICONE 80 MG CHEW PO SCH (17:00)
[2023-09-16] MEDS: MAGNESIUM OXIDE 400 MG TAB PO SCH (18:25)
[2023-09-16] MEDS ORDERED: DOCUSATE SODIUM 100 MG CAP PO SCH (21:00)
--- NOTE | 2023-09-17 07:04 | Obstetrical Progress Note ---
Date of Service September 17, 2023 Assessment & Plan (1) Encounter for care after hospital delivery: Plan stable and doing well. ready for dc home. plans to see pcp this wk re: ear infection, will send augmentin for now. checked on papdmp and no issues. instructions reviewed. f/u 6 wks pp check. breast/rhpos/ri. Day #:: 3 Subjective Ambulation: ambulating normally Voiding: no voiding problems Passing Gas:: Yes Diet Tolerance:: regular diet Lochia:: Small Feeding Type:: breast feeding no cp or sob. pain control adequate. no bleeding issues. using the augmentin for ear infection but not seeing huge difference yet wants to go home. Constitutional: + as per Subjective / HPI Physical Exam Constitutional WD/WN, vitals as above Respiratory normal respiratory effort, lungs clear to auscultation Cardiovascular Rate/Rhythm: regular rate and regular rhythm Gastrointestinal (Abdomen) Inspection/Auscultation: abdomen normal to inspection and + abdominal surgical incision (c/d/i with steris) Percussion/Palpation: abdomen soft fundus firm 2 cm below umbilicus Musculoskeletal no edema Neurologic grossly normal Psychiatric A+Ox3, euthymic affect Results & Data Vital Signs (Past 12 Hours) Vital Signs Temp Pulse Resp BP Pulse Ox O2 Del Method 09/17/23 00:55 98.4 F 93 H 16 115/74 98 Room Air 09/16/23 19:35 98.6 F 102 H 16 109/69 97 Room Air
[2023-09-17] MEDS ORDERED: FERROUS SULFATE 325 MG TAB PO SCH (08:00)
[2023-09-17] MEDS: PRENATAL VITAMIN 1 TAB PO SCH (08:02)
[2023-09-17] MEDS ORDERED: bisacodyL 5 MG TABEC PO SCH (20:00)
[2023-09-18] MEDS ORDERED: bisacodyL 10 MG SUPP PR PRN (13:04)
--- NOTE | 2023-09-21 13:55 | Discharge Summary ---
Date of Service September 21, 2023 Admission HPI Per Admitting Provider Odilia is a 23 y/o at 39 weeks of gestation THOMAS: 09/19/2023 . Here for Induction had a vincent bulb.Complications with this include LGA (anatomy US EFW>98%). Had covid positive 08/03/23 and Influenza positive (09/06/23). Has been attending OB appointments regularly. Currently taking vitamins and ASA. GBS negative, Rubella Immune, BTG: A+ Contractions: none. Fluid or Blood loss: none Movement: active FHR baseline 130, moderate variability, accelerations present, decelerations absent Lab Results OB Labs: Blood Type A Positive 02/18/23 Antibody Screen NEGATIVE 02/18/23 Hemoglobin 11.3 g/dl (12.0-16.0) L 08/12/23 Hematocrit 34.0 % (37.0-47.0) L 08/12/23 Mean Corpuscular Volume 99.4 fL (80.0-100.0) 08/12/23 Platelet Count 189 K/uL (130-400) 08/12/23 Rubella IgG Antibody Immune (Immune) 02/18/23 Rapid Plasma Reagin Nonreactive (Nonreactive) 02/18/23 Hepatitis B Surface Antigen. NON-REACTIVE (NON-REACTIVE) 02/18/23 Hepatitis C Antibody (EIA) NON-REACTIVE (NON-REACTIVE) 02/18/23 HIV (1&2) Ag and Ab Confirmation NON-REACTIVE (NON-REACTIVE) 02/18/23 Glucose 1 Hour 50 gm Load 94 mg/dl (70-130) 07/04/23 OB Optional Labs: Chlamydia trachomatis RNA Not Detected (NotDetected) 02/18/23 Neisseria gonorrhoeae RNA Not Detected (NotDetected) 02/18/23 Labs Reviewed: cfdna-low risk--mln Discharge Data Consultations 09/13/23 08:39 Consult Anesthesiology Stat Procedures Performed Operation Date: 09/14/23 00:30 Actual Procedures p primary Section in LD. Live male child @Eri Mortensen DO Hospital Course (1) Encounter for care after hospital delivery: Admitted for induction of labor. Delivered by section. Uncomplicated postop course. DC home POD3. Please see chart for further details. Plan stable and doing well. ready for dc home. plans to see pcp this wk re: ear infection, will send augmentin for now. checked on papdmp and no issues. instructions reviewed. f/u 6 wks pp check. breast/rhpos/ri. Coding Level of Care Code None Diagnoses Encounter for care after hospital delivery Z39.2
== END 2023-09-17 13:45 | disposition home or self-care (01) | DRG 788 ==
LOC: 4S1 07:34 → 4E2 09-14 04:53
DX: Z83.3 Family history of diabetes mellitus; Z79.82 Long term (current) use of aspirin; Z37.0 Single live birth; Z86.16 Personal history of COVID-19; O62.1 Secondary uterine inertia; O36.63X0 Maternal care for excessive fetal growth, third trimester, not applicable or unspecified; Z3A.39 39 weeks gestation of pregnancy